=== PATIENT | male | born 1950 | race Caucasian/White ===

== ENCOUNTER 2017-05-04 17:27 | Observation (INO) | payer MEDICARE, OTHER ==
[2017-05-04] MEDS ORDERED: Nitroglycerin 0.4 MG TAB (25 Tab Bottle) ONE (17:46)
[2017-05-04] MEDS ORDERED: Nitroglycerin 2% Ointment 1 INCH/1 GM Packet ONE (17:46)
[2017-05-04 17:58] LABS: #Eosinphils 0.6 thou/uL (0.0-0.7); #Lymphocytes 1.6 thou/uL (1.20-3.40); #Monocytes 0.9 thou/uL (0.11-0.59); #Neutrophils 5.8 thou/uL (1.40-6.50); %Basophils 0.1 % (0.0-1.0); %Eosinophils 6.5 % (0.0-10.0); %Lymphocytes 18.3 % (21.0-51.0); %Monocytes 10.1 % (0.0-10.0); Hematocrit 38.8 % (42.0-52.0); Mean Platelet Volume 8.1 fL (7.4-10.4); Red Blood Cell (RBC) Count 4.27 mill/uL (4.70-6.10)
[2017-05-04 18:24] LABS: ALT (SGPT) 13 U/L (8-55); AST (SGOT) 18 U/L (5-34); Alkaline Phosphatase 91 U/L (40-150); Anion Gap 14 mmol/L (10-20); BUN (Urea Nitrogen) 7 mg/dL (8.4-25.7); Bilirubin, Total 0.4 mg/dL (0.2-1.2); CK (CPK) 77 U/L (30-200); Calc. Creatinine Clearance 0 mL/min (70-130); Carbon Dioxide 22 mmol/L (23-31); Chloride 98 mmol/L (98-107); Estimated GFR-MDRD 62; Lipase 10 U/L (8-78)
[2017-05-04 18:27] LABS: Troponin I 0.015 ng/mL (< 0.028)
[2017-05-04] MEDS ORDERED: Aspirin 325 MG TAB ONE (19:13)
[2017-05-04 20:47] LABS: Troponin I Less than 0.010 ng/mL (< 0.028)
--- NOTE | 2017-05-04 20:48 | PDOC.EVN ---
Event Note - Event Note Event Note: [id number] 1. AFIB 2. Chest pain 3. H/O HPL 4.HTN uncontrolled plan: see orders
[2017-05-04] MEDS ORDERED: cloNIDine HCl 0.1 MG TAB PO PRN (21:04)
[2017-05-04 21:58] VITALS: BMI 29.0
[2017-05-04 23:54] LABS: Troponin I 0.018 ng/mL (< 0.028)
[2017-05-05 04:52] LABS: Troponin I 0.016 ng/mL (< 0.028)
[2017-05-05] MEDS ORDERED: Nitroglycerin 0.4 MG TAB (25 Tab Bottle) PO PRN (07:33)
[2017-05-05] MEDS ORDERED: Levothyroxine Sodium 50 MCG TAB PO SCH (08:00)
[2017-05-05 08:04] LABS: Anion Gap 11 mmol/L (10-20); BUN (Urea Nitrogen) 7 mg/dL (8.4-25.7); BUN/Creatinine Ratio 7.22; Calc. Creatinine Clearance 84 mL/min (70-130); Calcium 8.6 mg/dL (7.8-10.44); Carbon Dioxide 26 mmol/L (23-31); Chloride 102 mmol/L (98-107); Estimated GFR-MDRD 77; Magnesium 1.8 mg/dL (1.6-2.6)
[2017-05-05 08:10] VITALS: TEMP 97.9
--- NOTE | 2017-05-05 08:39 | HP ---
DATE OF ADMISSION: 05/04/2017 CHIEF COMPLAINT: Irregular heart beat, throbbing pain. HISTORY OF PRESENT ILLNESS: Patient is a 66-year-old male with past medical history of atrial fibri llation, hyperlipidemia, hypertension, hypothyroidism, GERD, now came to the hospital because of irr egular heart rate. Patient said he was at work and then all of a sudden he felt his heart is beatin g irregularly then he started having some throbbing pain, substernal, intermittent. Denies any dysp von, denies any palpitations, denies any sweating, denies any nausea, denies any vomiting. Symptoms persisted, he felt tired also, so he was brought to the ER. Patient denies any complaints at this time. Patient's blood pressure upon ER arrival was elevated. Patient denies any other complaints. PAST MEDICAL HISTORY: As per HPI. PAST SURGICAL HISTORY: Cardiac ablation. SOCIAL HISTORY: Denies smoking, denies alcohol, denies any drugs. MEDICATIONS: Reviewed. FAMILY HISTORY: Denies any heart problems. REVIEW OF SYSTEMS: Constitutional: Denies any fever, denies any chills. Eyes: Denies any vision problems. Ears: De nies any hearing loss. Neck: Denies any neck pain. Cardiovascular: Irregular heart rate and ches t pain. Respiratory: Denies any dyspnea. Denies any cough. Gastrointestinal: Denies any nausea, denies vomiting. Musculoskeletal: Denies any joint deformities. Integumentary: Denies any rash. Psychiatric: Denies any depression or anxiety. Cranial nerve system: Denies syncope, denies lig htheadedness. All other review of systems are reviewed and are negative. PHYSICAL EXAMINATION: CONSTITUTIONAL/VITAL SIGNS: At the time of H\T\P performed, blood pressure is 166/86, pulse ox 97%, heart rate 66. GENERAL: The patient appears comfortable. HEENT: Pupils equal, round and reactive . Anterior nares patent. Nose normal. Ears normal. Teeth intact. Tongue is moist. NECK: Supple, no JVD. CARDIOVASCULAR SYSTEM: S1, S2 present, regular rate and rhythm. No murmurs, no rubs, no gallops. RESPIRATORY SYSTEM: No wheezing, no rhonchi. CRANIAL NERVE SYSTEM: Awake, follows commands. Strength intact, sensory intact. PSYCHIATRIC: Mood appropriate at this time. INTEGUMENTARY: No rashes seen. LABORATORY DATA: At the time of H\T\P performed white count 9, hemoglobin 13, platelet count is 182 . Sodium 130, potassium 4, chloride 98, CO2 of 22, BUN of 7, creatinine 1.17, troponin 0.015, album in 4. EKG normal sinus rhythm in the ER and then sent up here in atrial fibrillation, but upon tele strips appears atrial fibrillation with some bigeminy. ASSESSMENT AND PLAN: The patient is a 66-year old male. 1. Atrial fibrillation. Plan to consult Cardiology to evaluate the patient. Plan to check cardiac enzymes. Plan to place the patient on telemetry. 2. Chest pain. Plan to monitor the patient closely. Plan to check cardiac enzymes and will follow the patient. 3. History of atrial fibrillation. Continue home medications. 4. Hypertension, uncontrolled. We will monitor blood pressures. Continue home blood pressure medi cations. We will add Norvasc 5 mg p.o. daily. 5. History of hypothyroidism. Continue Synthroid. 6. History of gastroesophageal reflux disease, continue proton-pump inhibitor. The case was discussed in detail with the patient.
[2017-05-05] MEDS ORDERED: FLU VACC TS2017-18 (>65YR) 0.5 ML SYRINGE IM ONE (09:00)
[2017-05-05] MEDS ORDERED: Aspirin 325 MG TAB PO SCH (09:00)
[2017-05-05] MEDS ORDERED: Aspirin 81 mg Enteric Coated Tablet PO SCH (09:00)
[2017-05-05] MEDS ORDERED: cloNIDine HCl 0.1 MG TAB PO PRN (13:34)
[2017-05-05] MEDS ORDERED: ALPRAZolam 0.25 MG TAB PO SCH (13:45)
--- NOTE | 2017-05-05 13:56 | EKG ---
Test Reason : Blood Pressure : / mmHG Vent. Rate : 066 BPM Atrial Rate : 066 BPM P-R Int : 184 ms QRS Dur : 096 ms QT Int : 446 ms P-R-T Axes : 025 018 026 degrees QTc Int : 467 ms Sinus rhythm with Premature atrial complexes Otherwise normal ECG Confirmed by MITCH RUST, TASHIA Sharif ([id number]), photography editor PRIMO KNAPP ([id number]) on 05/05/2017 1:55:47 PM Referred By: Confirmed By:TASHIA MEYER MD
--- NOTE | 2017-05-05 14:27 | DIS ---
DATE OF ADMISSION: 05/04/2017 DATE OF DISCHARGE: 05/05/2017 DISCHARGE DISPOSITION: Home. DISCHARGE FOLLOWUP: 1. Follow up with [facility] in 1 week. His primary care physician, Dr. Soriano is in [place]. 2. Follow up with primary land development manager in 1 week. ALLERGIES: No known drug allergies. DISCHARGE MEDICATIONS: Same as admission medication. 1. Amiodarone 200 mg Sunday, Sunday and Sunday. 2. Vitamin C 500 mg daily. 3. Allopurinol 100 mg daily. 4. Aspirin 81 mg daily. 5. Lipitor 80 mg daily. 6. Nexium 40 mg daily. 7. Fluticasone as needed. 8. Levothyroxine 50 mcg daily. 9. Fish oil 1 capsule daily. 10. Telmisartan 40 mg daily. INPATIENT CONSULTANTS: Cardiology, Devi Gipson M.D. The patient was seen and examined on the day of discharge. Denies any new complaints. No chest pain, shortness of breath or palpitations reported. SIGNIFICANT LABORATORIES: 1. TSH was 13.5. 2. Sodium on admission was 130, at discharge 135. 3. Cardiac enzymes were normal. 4. CBC showed a WBC of 9 with a hemoglobin of 13. BRIEF HOSPITAL COURSE: The patient is a 66-year-old male with paroxysmal atrial fibrillation, hypertension and hyperlipidemia. He presented to the hospital with irregular heartbeat along with some chest discomfort. Please refer to the history and physical for further details. The patient was admitted to the hospital with the diagnosis of chest discomfort along with hypertensive urgency. The patient was evaluated by Cardiology, Dr. Gipson. The patient was advised to follow up with primary land development manager as outpatient. The patient has been cleared by Cardiology for discharge. His electrolytes were more or less in normal range. He will be discharged later today once his blood pressure improves. He was advised to monitor his blood pressure on a daily basis and maintain a log. FINAL DIAGNOSES: 1. Chest discomfort, acute coronary syndrome ruled out. No further inpatient workup per Cardiology. 2. Palpitations probably due to paroxysmal atrial fibrillation, amiodarone will be continued. Follow up with primary cardiology per Dr Gipson. 3. Hypertension with hypertensive urgency. 4. Hypothyroidism with abnormal TSH. Primary care physician is advised to follow. No change in his levothyroxine doses were made. 5. Gastroesophageal reflux disease. 6. Hyponatremia, resolved. 7. Chronic kidney disease stage 2. 8. Chronic anemia. Plan of care was discussed with the patient and he stated understanding. MTDD
[2017-05-05 15:09] VITALS: BP 163/78
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
[2017-05-05] MEDS ORDERED: Atorvastatin Calcium 40 MG TAB PO SCH (21:00)
[2017-05-06] MEDS ORDERED: Levothyroxine Sodium 50 MCG TAB PO SCH (06:00)
== END 2017-05-05 15:48 | disposition home or self-care (01) ==
LOC: ERS 17:27 → 2SW 20:25
PROVIDERS: ADMIT Internal Medicine; ATTEND Internal Medicine
DX: R07.89 Other chest pain (principal); I48.0 Paroxysmal atrial fibrillation; I16.0 Hypertensive urgency; I12.9 Hypertensive chronic kidney disease with stage 1 through stage 4 chronic kidney disease, or unspecified chronic kidney disease; N18.2 Chronic kidney disease, stage 2 (mild); E03.9 Hypothyroidism, unspecified; E87.1 Hypo-osmolality and hyponatremia; E78.5 Hyperlipidemia, unspecified; K21.9 Gastro-esophageal reflux disease without esophagitis; D64.9 Anemia, unspecified; Z79.82 Long term (current) use of aspirin; Z79.899 Other long term (current) drug therapy; Z87.891 Personal history of nicotine dependence
CPT/HCPCS: 80061; 80069; 82550; 82553; 83690; 83735; 84484 ×3; 93005; 93306; 94760; 96360; 99285; G0008; G0378; Q2036; 36415; 80053; 84443; 85025; 90471; 90682; A4216

== ENCOUNTER 2017-05-07 12:17 | Emergency (ER) | payer MEDICARE, OTHER ==
[2017-05-07 12:50] LABS: #Basophils 0.1 thou/uL (0.0-0.2); #Eosinphils 0.3 thou/uL (0.0-0.7); #Lymphocytes 1.1 thou/uL (1.20-3.40); #Monocytes 0.8 thou/uL (0.11-0.59); #Neutrophils 6.7 thou/uL (1.40-6.50); %Basophils 0.6 % (0.0-1.0); %Eosinophils 3.4 % (0.0-10.0); %Monocytes 8.6 % (0.0-10.0); Hematocrit 39.1 % (42.0-52.0); Mean Platelet Volume 7.9 fL (7.4-10.4); Red Blood Cell (RBC) Count 4.29 mill/uL (4.70-6.10); White Blood Cell (WBC) Count 8.9 thou/uL (4.8-10.8)
[2017-05-07 13:16] LABS: ALT (SGPT) 14 U/L (8-55); AST (SGOT) 16 U/L (5-34); Alkaline Phosphatase 90 U/L (40-150); Anion Gap 12 mmol/L (10-20); BUN (Urea Nitrogen) 8 mg/dL (8.4-25.7); Bilirubin, Total 0.7 mg/dL (0.2-1.2); CK (CPK) 80 U/L (30-200); Calc. Creatinine Clearance 0 mL/min (70-130); Carbon Dioxide 26 mmol/L (23-31); Chloride 97 mmol/L (98-107); Estimated GFR-MDRD 70; Globulin 2.8 g/dL (2.4-3.5); Lipase 8 U/L (8-78); Protein, Total 6.7 g/dL (5.8-8.1)
[2017-05-07 13:20] LABS: Troponin I 0.017 ng/mL (< 0.028)
== END 2017-05-07 14:33 | disposition home or self-care (01) ==
LOC: ERS 12:17
DX: I10 Essential (primary) hypertension (principal); I48.91 Unspecified atrial fibrillation; I25.2 Old myocardial infarction; E03.9 Hypothyroidism, unspecified; K21.9 Gastro-esophageal reflux disease without esophagitis; E78.5 Hyperlipidemia, unspecified; Z87.891 Personal history of nicotine dependence; Z79.82 Long term (current) use of aspirin; Z79.899 Other long term (current) drug therapy
CPT/HCPCS: 36415; 80053; 82553; 83690; 84484; 85025; 93005